=== PATIENT | male | born 1985 | race Caucasian/White ===

== ENCOUNTER 2023-05-12 14:28 | Emergency (ER) | payer OTHER ==
[2023-05-12 14:53] VITALS: RESP 18
[2023-05-12] MEDS ORDERED: PROPARACAINE 0.5% OPHTH DROPS 15 ML BTL RIGHT EYE STA (15:09)
[2023-05-12] MEDS ORDERED: FLUORESCEIN STRIPS 1 MG STRIP RIGHT EYE ONE (15:09)
--- NOTE | 2023-05-12 15:34 | ED ---
Eye Problem HPI - General Chief complaint: Eye Problems Stated complaint: eye mucas Time Seen by Provider: 05/12/23 14:51 Source: patient, RN notes reviewed Mode of arrival: ambulatory Limitations: no limitations - History of Present Illness Initial comments: Patient is a 37-year-old male presenting to the ER with chief complaint of right eye discharge. Patient states for the past day she's been having increasing itchiness, redness, greenish discharge. He states his eye has discharge about every 10 minutes after he cleans it. Patient denies any known sick contacts, fevers, problems with his left eye. Patient denies any pain with movement of the eye. He does state he does have blurry vision. Patient has no other complaints. - Related Data Previous Rx's Medication Instructions Recorded Tobra-Dexamet 0.3-0.1% Eye Marcela 2 drops BOTH EYES Q4H #15 ml 05/12/23 [Tobradex Ophth Susp] Allergies Allergy/AdvReac Type Severity Reaction Status Date / Time No Known Allergies Allergy Verified 05/12/23 14:38 Review of Systems ROS Statement: Those systems with pertinent positive or pertinent negative responses have been documented in the HPI. ROS Other: All systems not noted in ROS Statement are negative. Past Medical History Additional Past Medical History / Comment(s): brain tumor History of Any Multi-Drug Resistant Organisms: None Reported Past Surgical History: No Surgical Hx Reported Past Psychological History: No Psychological Hx Reported Smoking Status: Current every day smoker Past Alcohol Use History: Occasional Past Drug Use History: Methamphetamine General Exam Limitations: no limitations General appearance: alert, in no apparent distress Eye exam: Present: PERRL, conjunctival injection, other (Fluorescein stain examination was negative for ulcers or abnormalities in the cornea of right eye) Pupils: Present: normal accommodation, other (green discharge noted around) Course Vital Signs 05/12/23 14:35 Temperature 99 F Pulse Rate 94 Respiratory 18 Rate Blood Pressure 111/75 O2 Sat by Pulse 97 Oximetry Medical Decision Making - Medical Decision Making Was pt. sent in by a medical professional or institution (, PA, INSURANCE COORDINATOR, urgent care, hospital, or residential...) When possible be specific @ -No Did you speak to anyone other than the patient for history (EMS, parent, family, police, friend...)? What history was obtained from this source @ -No Did you review nursing and triage notes (agree or disagree)? Why? @ -I reviewed and agree with nursing and triage notes Were old charts reviewed (outside hosp., previous admission, EMS record, old EKG, old radiological studies, urgent care reports/EKG's, residential records)? Report findings @ -No old charts were reviewed Differential Diagnosis (chest pain, altered mental status, abdominal pain women, abdominal pain men, vaginal bleeding, weakness, fever, dyspnea, syncope, headache, dizziness, GI bleed, back pain, seizure, CVA, palpatations, mental health, musculoskeletal)? @ -[Conjunctivitis, corneal ulcer, corneal abrasion EKG interpreted by me (3pts min.). @ -[None X-rays interpreted by me (1pt min.). @ -None done CT interpreted by me (1pt min.). @ -None done U/S interpreted by me (1pt. min.). @ -None done What testing was considered but not performed or refused? (CT, X-rays, U/S, labs)? Why? @ -None What meds were considered but not given or refused? Why? @ -None Did you discuss the management of the patient with other professionals (professionals i.e. , PA, INSURANCE COORDINATOR, lab, RT, psych nurse, nephrology social worker, atg java developer, teacher, retail loan officer, case management associate)? Give summary @ -No Was smoking cessation discussed for >3mins.? @ -No Was critical care preformed (if so, how long)? @ -No Were there social determinants of health that impacted care today? How? (Homelessness, low income, unemployed, alcoholism, drug addiction, transportation, low edu. Level, literacy, decrease access to med. care, snf, rehab)? @ -No Was there de-escalation of care discussed even if they declined (Discuss DNR or withdrawal of care, Hospice)? DNR status @ -No What co-morbidities impacted this encounter? (DM, HTN, Smoking, COPD, CAD, Cancer, CVA, ARF, Chemo, Hep., AIDS, mental health diagnosis, sleep apnea, morbid obesity)? @ -None Was patient admitted / discharged? Hospital course, mention meds given and route, prescriptions, significant lab abnormalities, going to OR and other pertinent info. @ -[Discharged. On examination of the right eye, conjunctival injection and green discharge was noted. Fluorsence stain was negative for corneral ulcers or abrasions. Patient will be discharged home in stable condition with a prescription for TobraDex. Patient advised to clean eye throughout the day. Patient expressed understanding. Undiagnosed new problem with uncertain prognosis? @ -No Drug Therapy requiring intensive monitoring for toxicity (Heparin, Nitro, In sulin, Cardizem)? @ -No Were any procedures done? @ -No Diagnosis/symptom? @ Conjunctivitis Acute, or Chronic, or Acute on Chronic? @ -Acute Uncomplicated (without systemic symptoms) or Complicated (systemic symptoms)? @ -Uncomplicated Side effects of treatment? @ -No Exacerbation, Progression, or Severe Exacerbation? @ -No Poses a threat to life or bodily function? How? (Chest pain, [place], [place], pneumonia, PE, COPD, DKA, ARF, appy, cholecystitis, CVA, Diverticulitis, Homicidal, Suicidal, threat to staff... and all critical care pts) @ -No Disposition Clinical Impression: Bacterial conjunctivitis Disposition: HOME SELF-CARE Condition: Stable Additional Instructions: Please return to the Emergency Department if symptoms worsen or any other concerns. Prescriptions: Tobra-Dexamet 0.3-0.1% Eye Marcela [Tobradex Ophth Susp] 2 drops BOTH EYES Q4H #15 ml Is patient prescribed a controlled substance at d/c from ED?: No Referrals: None,Stated [Primary Care Provider] - 1-2 days Time of Disposition: 15:35
[2023-05-12 16:22] VITALS: BP 107/70; PULSE 88; TEMP 98.6
== END 2023-05-12 16:13 | disposition home or self-care (01) ==
LOC: EC 14:28
DX: H10.31 Unspecified acute conjunctivitis, right eye (principal); F17.200 Nicotine dependence, unspecified, uncomplicated
CPT/HCPCS: 99283